=== PATIENT | male | born 1935 | race Caucasian/White ===

== ENCOUNTER 2016-07-06 14:08 | Emergency (ER) | payer MEDICARE, BC ==
[2016-07-06 15:24] LABS: RED BLOOD COUNT 4.77 M/UL (4.20-5.50); WHITE BLOOD COUNT 8.4 K/UL (4.5-11.0)
[2016-07-06 15:49] LABS: BUN/CREATININE RATIO 16 (0-10)
== END 2016-07-06 19:40 | disposition home or self-care (01) ==
LOC: ER1 14:08
PROVIDERS: Physician Assistant
DX: R07.2 Precordial pain (principal); R06.02 Shortness of breath; I10 Essential (primary) hypertension; Z79.899 Other long term (current) drug therapy
CPT/HCPCS: 36415; 71010; 80053; 82550; 82553; 83874; 84484; 85025; 93005; 99285

== ENCOUNTER → 2016-07-24 | Outpatient (CLI) | payer MEDICARE, BC | LOC: HEART 5 07:17 | DX: I20.9 Angina pectoris, unspecified (principal) | CPT/HCPCS: 78452; A9502; J2785 ==

== ENCOUNTER → 2016-08-01 | Outpatient (CLI) | payer MEDICARE, BC | LOC: HEART 5 11:01 | DX: I20.9 Angina pectoris, unspecified (principal); I65.29 Occlusion and stenosis of unspecified carotid artery; E78.00 Pure hypercholesterolemia, unspecified; R42 Dizziness and giddiness ==

== ENCOUNTER → 2020-06-14 | Outpatient (CLI) | payer MEDICARE, BC ==
[~2020-06-14] MED LIST: ASPIRIN CHEWABL81 MG PO; FAMCICLOVIR500 MG PO; PERCOCET 5/325 T1 EA PO
== END ==
LOC: EMI 12:30
DX: R41.3 Other amnesia (principal); G31.9 Degenerative disease of nervous system, unspecified
CPT/HCPCS: 70551

== ENCOUNTER 2021-12-15 06:41 | Emergency (ER) | payer MEDICARE, BC ==
[2021-12-15 07:52] LABS: HEMOGLOBIN 13.3 gm/dl (14.0-17.5); RED BLOOD COUNT 4.35 M/UL (4.20-5.50)
== END 2021-12-15 10:29 | disposition home or self-care (01) ==
LOC: ER1 06:41
PROVIDERS: Student in an Organized Health Care Education/Training Program
DX: S01.01XA Laceration without foreign body of scalp, initial encounter (principal); I11.0 Hypertensive heart disease with heart failure; Z88.5 Allergy status to narcotic agent; W07.XXXA Fall from chair, initial encounter; Y92.009 Unspecified place in unspecified non-institutional (private) residence as the place of occurrence of the external cause
CPT/HCPCS: 70450; 71045; 72125; 80053; 82550; 82553; 84484; 85025; 90471; 90715; 93005; 99284